=== PATIENT | male | born 1955 | race African-American/Black ===

== ENCOUNTER 2017-06-07 00:34 | Emergency (ER) | END 2017-06-07 06:13 | disposition home or self-care (01) | DX: R10.9 Unspecified abdominal pain (principal); R40.2252 Coma scale, best verbal response, oriented, at arrival to emergency department; R11.2 Nausea with vomiting, unspecified; I10 Essential (primary) hypertension; R40.2142 Coma scale, eyes open, spontaneous, at arrival to emergency department; R40.2362 Coma scale, best motor response, obeys commands, at arrival to emergency department; Z79.82 Long term (current) use of aspirin; Z87.891 Personal history of nicotine dependence | CPT/HCPCS: 36415; 74176; 80053; 81003; 83690; 85025; 96374; 96375; 96376; 99285; J1170; J2270; J2405; J7030 ==

== ENCOUNTER 2017-06-11 01:41 | Emergency (ER) | payer BC ==
[~2017-06-11] VITALS: Ht 177.8 cm; Wt 110.0 kg
[~2017-06-11 01:41] MED LIST: AMLO-145 PO; ASPI-664 PO; DICY10CA60 PO; DOCU-144 PO; LOSA50TA6 PO; PRAV20TA63 PO
[2017-06-11 01:48] VITALS: Ht 177.8 cm; Wt 110.0 kg
--- NOTE | 2017-06-11 01:59 | ERA ---
ER Documentation Chief Complaint Date/Time DATE: 06/11/17 TIME: 01:58 Chief Complaint Right sided abdominal pain HPI The patient is a 71-year-old male, presenting to the ER because of right-sided abdominal pain intermittently for 1 week. He was seen in the ER about 4 days ago and had a CT scan that show cholelithiasis. He denies fever, chills, neck pain, chest pain, vomiting, diarrhea, constipation, dysuria. He does smoke half a pack a day, drinks socially Past medical history: Dyslipidemia, hypertension Past surgical history: None ROS All systems reviewed and are negative except as per history of present illness. Medications Home Meds Active Scripts Ibuprofen* (Ibuprofen*) 600 Mg Tablet, 600 MG PO Q6, #20 TAB Prov:SASHA LARSEN MD 06/11/17 Hydrocodone/Acetaminophen (Bethel 10-325 Tablet) 1 Each Tablet, 1 TAB PO Q6H Y for PAIN, #7 TAB Prov:SASHA LARSEN MD 06/11/17 Docusate Sodium* (Colace*) 100 Mg Capsule, 100 MG PO TID, #30 CAP Prov:MELINA DANIELS 06/07/17 Dicyclomine Hcl* (Bentyl*) 10 Mg Capsule, 10 MG PO QID, #30 CAP Prov:MELINA DANIELS 06/07/17 Reported Medications Niacin (Inositol Niacinate) (Niacin 500 mg Capsule) 500 Mg Capsule, 500 MG PO BID, CAP 06/11/17 Losartan-Hydrochlorothiazide (Losartan-HCTZ) 100-12.5 Mg Tab, 1 TAB PO DAILY, TAB 06/11/17 Aspirin* (Aspirin* EC) 81 Mg Tablet.dr, 81 MG PO DAILY, TAB 06/07/17 Pravastatin Sodium* (Pravastatin Sodium*) 20 Mg Tablet, 20 MG PO HS, TAB 06/07/17 Amlodipine Besylate* (Amlodipine Besylate*) 5 Mg Tablet, 5 MG PO DAILY, #30 TAB 06/07/17 Discontinued Reported Medications Losartan Potassium* (Losartan Potassium*) 50 Mg Tablet, 50 MG PO DAILY, TAB 06/07/17 Allergies Allergies: Coded Allergies: No Known Allergy (Unverified , 06/07/17) PMhx/Soc Hx Cardiac Disorders: Yes (htn) Hx Alcohol Use: No Hx Substance Use: No Hx Tobacco Use: No Physical Exam Vitals Vital Signs Date Time Temp Pulse Resp B/P Pulse Ox O2 Delivery O2 Flow Rate FiO2 06/11/17 02:10 98.3 40 20 160/90 100 Room Air 06/11/17 02:00 98.3 20 202/87 100 06/11/17 01:48 98.3 45 20 202/87 100 Physical Exam Const: No acute distress. Head: Atraumatic. Eyes: Normal Conjunctiva. ENT: Normal External Ears, Nose and Mouth. Neck: Full range of motion. No meningismus. Resp: Clear to auscultation bilaterally. Cardio: Regular rate and rhythm. Abd: Soft, non distended, normal bowel sounds, mild right upper quadrant tenderness, no right lower quadrant, epigastric, CVA, rigidity, rebound tenderness Skin: No petechiae or rashes. Back: No midline or flank tenderness. Ext: No cyanosis, or edema. Neur: Awake and alert. No focal deficit Psych: Normal Mood and Affect. Result Diagram: 06/11/1722706/11/17227 Results 24 hrs Laboratory Tests Test 06/11/17 02:28 06/11/17 02:43 White Blood Count 4.810^3/ul Red Blood Count 5.0410^6/ul Hemoglobin 15.5g/dl Hematocrit 47.7% Mean Corpuscular Volume 94.6fl Mean Corpuscular Hemoglobin 30.8pg Mean Corpuscular Hemoglobin Concent 32.5g/dl Red Cell Distribution Width 12.9% Platelet Count 30874^3/UL Mean Platelet Volume 13.1fl Neutrophils % 42.1% Lymphocytes % 44.2% Monocytes % 9.8% Eosinophils % 2.9% Basophils % 0.8% Nucleated Red Blood Cells % 0.0/100WBC Neutrophils # 2.010^3/ul Lymphocytes # 2.110^3/ul Monocytes # 0.510^3/ul Eosinophils # 0.110^3/ul Basophils # 0.010^3/ul Nucleated Red Blood Cells # 0.010^3/ul Sodium Level 144mmol/L Potassium Level 4.6mmol/L Chloride Level 100mmol/L Carbon Dioxide Level 29mmol/L Anion Gap 20 Blood Urea Nitrogen 20mg/dl Creatinine 1.13mg/dl Glucose Level 97mg/dl Calcium Level 10.5mg/dl Total Bilirubin 0.4mg/dl Direct Bilirubin 0.00mg/dl Indirect Bilirubin 0.4mg/dl Aspartate Amino Transf (AST/SGOT) 38IU/L Alanine Aminotransferase (ALT/SGPT) 58IU/L Alkaline Phosphatase 46IU/L Total Protein 7.1g/dl Albumin 4.9g/dl Globulin 2.20g/dl Albumin/Globulin Ratio 2.22 Lipase 239U/L Bedside Urine pH (LAB) 6.0 Bedside Urine Protein (LAB) Negative Bedside Urine Glucose (UA) Negative Bedside Urine Ketones (LAB) Negative Bedside Urine Blood Negative Bedside Urine Nitrite (LAB) Negative Bedside Urine Leukocyte Esterase (L Negative Current Medications Medications (Trade) Dose Ordered Sig/Adam Route PRN Reason Start Time Stop Time Status Last Admin Dose Admin Morphine Sulfate (morphine) 4 mg ONCE STAT IV 06/11/17 02:20 06/11/17 02:21 DC 06/11/17 02:34 Ondansetron HCl (Zofran Inj) 4 mg ONCE STAT IV 06/11/17 02:20 06/11/17 02:21 DC 06/11/17 02:34 Morphine Sulfate (morphine) 4 mg ONCE STAT IV 06/11/17 04:36 06/11/17 04:37 DC Ondansetron HCl (Zofran Inj) 4 mg ONCE STAT IV 06/11/17 04:36 06/11/17 04:37 DC Procedures/[place] [id number] Radiology Main Line: [phone] DIAGNOSTIC IMAGING REPORT Patient: GORDON HERNANDEZ : 1955 Age: 61 Sex: M MR #: [id number] DOS: 06/11/17 0221 Ordering MD: SASHA LARSEN MD Location: E/R Room/Bed: PROCEDURE: Ultrasound of the abdomen. CLINICAL INDICATION: Right upper quadrant pain. TECHNIQUE: Sonographic images of the abdomen were performed. COMPARISON: No pertinent prior examinations were submitted for comparison. FINDINGS: Liver: The liver is diffusely increased in echogenicity and mildly enlarged, measuring approximately 16.6 cm. The hepatic veins and portal veins are patent with appropriate directional flow. No intrahepatic ductal dilatation is seen. Gallbladder: A stone is noted within the gallbladder. No pericholecystic free fluid or gallbladder wall thickening is identified. The common duct measures 3.7 mm. Negative sonographic Chisholm's sign is reported. Pancreas: Obscured by bowel gas. Kidneys: The right kidney measures 10 cm. There is normal corticomedullary differentiation. There is no evidence of renal calculus or hydronephrosis. IVC: The visualized portion of the inferior vena cava is unremarkable. Aorta: Normal in size. Free fluid: None. IMPRESSION: Hepatic steatosis and mild hepatomegaly. Cholelithiasis. RPTAT: HIKT .Bossman Alexander MD, MD Date Time Electronically viewed and signed by .Bossman Alexander MD, MD on 06/11/2017 03:51 .T/ CC: SASHA LARSEN MD MEDICAL MAKING DECISION: The patient is a 71-year-old male, presenting with acute biliary colic and acute accelerated hypertension due to pain. He is treated with morphine 4 mg IV 2 for pain, Zofran formula IV 2 for nausea with good response The differential diagnoses considered include but are not limited to cholelithiasis, cholecystitis, cystitis, pancreatitis, hepatitis, gastritis, peptic ulcer disease, gastric ulcer, appendicitis, diverticulitis, cholangitis, choledocholithiasis, partial small bowel obstruction. Departure Diagnosis: Primary Impression: Biliary colic Condition: Good Comments He was discharged with Bethel and Motrin I discussed the findings with the patient. I advised the patient to follow-up with the primary physician tomorrow for referral to general surgery for elective cholecystectomy in about 1-2 days, sooner if needed and return if any concern. SASHA LARSEN MD Jun 11, 2017 01:59
[2017-06-11 02:10] VITALS: TEMP 98.3
[2017-06-11] MEDS ORDERED: ONDANSETRON 4 MG INJ IV STA ×2 (02:20→04:36)
[2017-06-11] MEDS ORDERED: morphine 4 MG/ML VIAL IV STA ×2 (02:20→04:36)
[2017-06-11 02:39] LABS: URINE BLOOD (Dip) POC Negative (NEGATIVE)
[2017-06-11] MEDS ORDERED: LOSA1TAB21 PO (03:17)
[2017-06-11] MEDS ORDERED: NIAC500C8 PO (03:17)
[2017-06-11 03:27] LABS: ADD SCAN DIFF NO
[2017-06-11 03:42] LABS: ABNORMAL IP MESSAGE 1; BASOPHILS % 0.8 % (0.0-2.0); EOSINOPHILS # 0.1 10^3/ul (0.0-0.5); EOSINOPHILS % 2.9 % (0.0-7.0); HEMATOCRIT 47.7 % (42.0-52.0); HEMOGLOBIN 15.5 g/dl (14.0-18.0); LYMPHOCYTES # 2.1 10^3/ul (0.8-2.9); LYMPHOCYTES % 44.2 % (15.0-51.0); MEAN CORPUSCULAR HEMOGLOBIN 30.8 pg (29.0-33.0); MEAN CORPUSCULAR HGB CONC 32.5 g/dl (32.0-37.0); MEAN CORPUSCULAR VOLUME 94.6 fl (82.0-101.0); MEAN PLATELET VOLUME 13.1 fl (7.4-10.4); MONOCYTE # 0.5 10^3/ul (0.3-0.9); MONOCYTES % 9.8 % (0.0-11.0); NEUTROPHILS % 42.1 % (39.0-77.0); PLATELET COUNT 143 10^3/UL (140-415); RED BLOOD COUNT 5.04 10^6/ul (4.70-6.10); RED CELL DISTRIBUTION WIDTH 12.9 % (11.5-14.5); WHITE BLOOD COUNT 4.8 10^3/ul (4.8-10.8)
--- NOTE | 2017-06-11 03:52 | RADRPT ---
PROCEDURE: Ultrasound of the abdomen. CLINICAL INDICATION: Right upper quadrant pain. TECHNIQUE: Sonographic images of the abdomen were performed. COMPARISON: No pertinent prior examinations were submitted for comparison. FINDINGS: Liver: The liver is diffusely increased in echogenicity and mildly enlarged, measuring approximatel y 16.6 cm. The hepatic veins and portal veins are patent with appropriate directional flow. No intra hepatic ductal dilatation is seen. Gallbladder: A stone is noted within the gallbladder. No pericholecystic free fluid or gallbladder wall thickening is identified. The common duct measures 3.7 mm. Negative sonographic Chisholm's sign is reported. Pancreas: Obscured by bowel gas. Kidneys: The right kidney measures 10 cm. There is normal corticomedullary differentiation. There is no evidence of renal calculus or hydronephrosis. IVC: The visualized portion of the inferior vena cava is unremarkable. Aorta: Normal in size. Free fluid: None. IMPRESSION: Hepatic steatosis and mild hepatomegaly. Cholelithiasis. RPTAT: HIKT .Bossman Alexander MD, MD Date Time Electronically viewed and signed by .Bossman Alexander MD, on 06/11/2017 03:51 .T/
[2017-06-11 03:58] LABS: ALBUMIN 4.9 g/dl (3.3-4.9); ALBUMIN/GLOBULIN RATIO 2.22; BILIRUBIN,INDIRECT 0.4 mg/dl (0-1.1); BILIRUBIN,TOTAL 0.4 mg/dl (0.2-1.3); CALCIUM 10.5 mg/dl (8.4-10.2); CREATININE 1.13 mg/dl (0.61-1.24); POTASSIUM 4.6 mmol/L (3.5-5.1); TOTAL PROTEIN 7.1 g/dl (6.1-8.1)
[2017-06-11] MEDS ORDERED: HYDR-902 PO ×2 (04:37→05:15)
[2017-06-11] MEDS ORDERED: IBUP-1542 PO (04:38)
[2017-06-11 05:15] VITALS: BP 155/89; PULSE 81; RESP 18
== END 2017-06-11 05:15 | disposition home or self-care (01) ==
LOC: E/R 01:41
DX: K80.50 Calculus of bile duct without cholangitis or cholecystitis without obstruction (principal); I10 Essential (primary) hypertension; F17.210 Nicotine dependence, cigarettes, uncomplicated; Z79.82 Long term (current) use of aspirin
CPT/HCPCS: 76705; 80053; 81003; 83690; 85025; J2270; J2405; 36415; 96374; 96375; 96376